=== PATIENT | male | born 1945 | race Caucasian/White ===

== ENCOUNTER 2018-11-09 16:28 | Outpatient (CLI) | payer BC ==
[2018-11-09] MEDS ORDERED: Sodium Chloride 0.9% 15 ML NEB ONE (18:00)
--- NOTE | 2018-11-09 21:04 | HP ---
HISTORY OF PRESENT ILLNESS: Mr. Arslan Schuster junior is a very pleasant 72-year-old gentleman last seen in the [facility] Center in 2016, who presents again for evaluation of an ulceration of the left medial lower leg. The patient states he has been performing dressing changes of a dressing containing silver for his ulceration. The patient has no other complaints today. He denies any fever or chills. PAST MEDICAL HISTORY: 1. Recurrent deep venous thrombosis and two episodes of pulmonary embolus. 2. Gout. 3. Atrial fibrillation. PAST SURGICAL HISTORY: Cataract surgery. MEDICATIONS: 1. Coreg. 2. Ramipril. 3. Coumadin. ALLERGIES: NO KNOWN DIAGNOSED ALLERGIES. SOCIAL HISTORY: Social history is negative for current tobacco or EtOH use. FAMILY HISTORY: Family history is negative for coronary artery disease or diabetes mellitus. REVIEW OF SYSTEMS: The patient states that the ulceration of his left medial lower leg has been present for approximately 2 months. He states that it "scabbed" and appeared to be healing. He states, however, that the scab came off again revealing the ulceration now present. PHYSICAL EXAMINATION: VITAL SIGNS: Temperature 97.7, pulse 66, and blood pressure 133/62. GENERAL: A 72-year-old gentleman, sitting on table in examination room, in no acute distress. HEENT: Normocephalic, atraumatic. NECK: No nuchal rigidity. CHEST: Clear to auscultation. CV: Irregular. ABDOMEN: Soft. EXTREMITIES: An ulceration of the left medial lower leg is present, which measures approximately 1.1 x 1.1 cm. Granulation tissue is visible within the wound margins. Nonviable tissue present within the wound margins was debrided with an excisional full-thickness debridement. No purulent drainage is associated with the wound. No erythema of the skin surrounding the wound is present. No maceration of the skin of the periwound is noted. A dorsalis pedis pulse is easily palpable on the left. No significant edema of the left foot or lower leg is appreciated on exam today. Hyperpigmentation of the skin of the left lower leg is present. Numerous varicosities are also noted over the left foot and lower leg. ASSESSMENT AND PLAN: 1. 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 I will see Mr. Schuster again in 1 week. No antibiotics will be prescribed today based upon the appearance of the wound. The patient will also be referred for evaluation for venous ablation. 2. Recurrent deep venous thrombosis and 2 episodes of pulmonary embolus. 3. Gout. 4. Atrial fibrillation. Job ID: [id number]
== END 2018-11-09 16:29 | disposition home or self-care (01) ==
LOC: WCC 16:28
PROVIDERS: ATTEND Family Medicine
DX: I83.028 Varicose veins of left lower extremity with ulcer other part of lower leg (principal); L97.929 Non-pressure chronic ulcer of unspecified part of left lower leg with unspecified severity; M10.9 Gout, unspecified; I48.91 Unspecified atrial fibrillation; I82.402 Acute embolism and thrombosis of unspecified deep veins of left lower extremity; I26.99 Other pulmonary embolism without acute cor pulmonale
CPT/HCPCS: 11042; 99203; A4218; G0463

== ENCOUNTER 2018-11-16 14:14 | Outpatient (CLI) | payer BC ==
[2018-11-16] MEDS ORDERED: Sodium Chloride 0.9% 15 ML NEB ONE (15:00)
--- NOTE | 2018-11-16 15:19 | PRG ---
DATE OF SERVICE: 11/16/2018 HISTORY: Mr. Arslan Schuster Jr. is a very pleasant 73-year-old gentleman, who presents to the Wound Center for evaluation of an ulceration of the left medial lower leg. Prior to being seen in the Wound Center, the patient stated he had been performing dressing changes with the dressing containing silver for the ulceration. After being seen in the Wound Center, Medihoney Alginate followed by foam and the 3M Coban 2 Layer Compression System were applied to the ulceration. The patient has no complaints today. He denies any fever or chills. PHYSICAL EXAMINATION: VITAL SIGNS: Temperature 97.6, pulse 56, respirations 18, blood pressure 127/91. EXTREMITIES: An ulceration of the left medial lower leg is present, which measures approximately 1.3 x 1.4 cm. Granulation tissue is present within the wound margins. Nonviable tissue present within the wound margins was debrided with an excisional full-thickness debridement. No purulent drainage is associated with the wound. No erythema of the skin surrounding the wound is present. No maceration of the skin of the periwound is noted. No significant edema of the left foot or lower leg is appreciated on exam today. Hyperpigmentation of the skin of the left lower leg is present. Numerous varicosities are also again noted over the left foot and lower leg. ASSESSMENT AND PLAN: 1. 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 Medihoney, foam, and the 3M Coban 2 Layer Compression System will be applied to the ulceration today. I will see Mr. Schuster again in 1 week. The patient will be referred for evaluation for venous ablation. 2. Recurrent deep venous thrombosis and two episodes of pulmonary embolus. 3. Gout. 4. Atrial fibrillation. Job ID: [id number]
== END 2018-11-16 14:15 | disposition home or self-care (01) ==
LOC: WCC 14:14
PROVIDERS: ATTEND Family Medicine
DX: I83.028 Varicose veins of left lower extremity with ulcer other part of lower leg (principal); L97.829 Non-pressure chronic ulcer of other part of left lower leg with unspecified severity; I82.409 Acute embolism and thrombosis of unspecified deep veins of unspecified lower extremity; I26.99 Other pulmonary embolism without acute cor pulmonale; M10.9 Gout, unspecified; I48.91 Unspecified atrial fibrillation
CPT/HCPCS: A4218

== ENCOUNTER 2018-11-23 13:41 | Outpatient (CLI) | payer BC ==
[~2018-11-23 13:41] MED LIST: Sodium Chloride 0.9% 15 ML NEB ONE
--- NOTE | 2018-11-23 15:26 | PRG ---
DATE OF SERVICE: 11/23/2018 HISTORY: Mr. Arslan Schuster Jr is a very pleasant 73-year-old gentleman, who presents to the wound center for evaluation of an ulceration of the left medial lower leg. Prior to being seen in the wound center, the patient stated, he had been performing dressing changes with dressings containing silver for his ulceration. After being seen in the wound center; Medihoney alginate, followed by foam, and the 3M Coban 2 Layer Compression System were applied to the ulceration. The patient has been receiving these dressing changes on a weekly basis. Mr. Schuster has no complaints today. He denies any fever or chills. PHYSICAL EXAMINATION: VITAL SIGNS: Temperature 98.1, pulse 79, respirations 18, and blood pressure 114/79. EXTREMITIES: An ulceration of the left medial lower leg is present, which measures approximately 1.3 x 1.3 cm. The dimensions of the wound at the time of the patient's last visit were approximately 1.3 x 1.4 cm. Granulation tissue is present within the wound margins. Nonviable tissue present within the wound margins was debrided with an excisional full-thickness debridement. No purulent drainage is associated with the wound. No erythema of the skin surrounding the wound is present. No maceration of the skin of the periwound is noted. No significant edema of the left foot or lower leg is present on exam today. Hyperpigmentation of the skin of the left lower leg is present. Numerous varicosities are also present over the left foot and lower leg. ASSESSMENT AND PLAN: 1. 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 Hydrofera Blue, an ABD, Webril, and the 3M Coban 2 Layer Compression System will be applied to the ulceration today. I will see Mr. Schuster again in 1 week. The patient will be referred again for evaluation for venous ablation. 2. Recurrent deep venous thrombosis and 2 episodes of pulmonary embolus. 3. Gout. 4. Atrial fibrillation. Job ID: [id number]
== END 2018-11-23 13:42 | disposition home or self-care (01) ==
LOC: WCC 13:41
PROVIDERS: ATTEND Family Medicine
DX: I83.029 Varicose veins of left lower extremity with ulcer of unspecified site (principal); I82.409 Acute embolism and thrombosis of unspecified deep veins of unspecified lower extremity; I26.99 Other pulmonary embolism without acute cor pulmonale; M10.9 Gout, unspecified; I48.91 Unspecified atrial fibrillation
CPT/HCPCS: 11042; A4218

== ENCOUNTER 2018-11-30 13:59 | Outpatient (CLI) | payer BC ==
--- NOTE | 2018-11-30 14:43 | PRG ---
DATE OF SERVICE: 11/30/2018 HISTORY: Mr. Arslan Schuster Jr is a very pleasant 73-year-old gentleman, who presents to the Wound Center for evaluation of an ulceration of the left medial lower leg. Prior to being seen in the Wound Center, the patient stated he had been performing dressing changes with dressings containing silver for his ulceration. After being seen in the Wound Center, Medihoney alginate, followed by foam, and the 3M Coban 2 Layer Compression System were applied to the ulceration. The patient received these dressing changes on a weekly basis. At the time of the patient's last visit, Hydrofera Blue, an ABD, Webril, and the 3M Coban 2 Layer Compression System were applied to the ulceration. The patient has no complaints today. He denies any fever or chills. PHYSICAL EXAMINATION: VITAL SIGNS: Temperature 97.5, pulse 86, respirations 18, blood pressure 126/71. EXTREMITIES: An ulceration of the left medial lower leg is present, which measures approximately 1.0 x 1.3 cm. The dimensions of the wound at the time of the patient's last visit were approximately 1.3 x 1.3 cm. Granulation tissue is present within the wound margins. Nonviable tissue present within the wound margins was debrided with an excisional full-thickness debridement. No purulent drainage is associated with the wound. No erythema of the skin surrounding the wound is present. No maceration of the skin of the periwound is noted. No significant edema of the left foot or lower leg is present on exam today. Hyperpigmentation of the skin of the left lower leg is present. Numerous varicosities are also present over the left foot and lower leg. ASSESSMENT AND PLAN: 1. 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 Hydrofera Blue, an ABD, Webril, and the 3M Coban 2 Layer Compression System will be applied to the ulceration today. The patient is being seen by Dr. Randell Lees for evaluation for venous ablation. I will see Mr. Schuster again in 1 week. 2. Recurrent deep venous thrombosis and 2 episodes of pulmonary embolus. 3. Gout. 4. Atrial fibrillation. Job ID: [id number]
[2018-11-30] MEDS ORDERED: Sodium Chloride 0.9% 15 ML NEB ONE (15:00)
== END 2018-11-30 14:00 | disposition home or self-care (01) ==
LOC: WCC 13:59
PROVIDERS: ATTEND Family Medicine
DX: I83.028 Varicose veins of left lower extremity with ulcer other part of lower leg (principal); L97.829 Non-pressure chronic ulcer of other part of left lower leg with unspecified severity; I26.99 Other pulmonary embolism without acute cor pulmonale; I82.409 Acute embolism and thrombosis of unspecified deep veins of unspecified lower extremity; M10.9 Gout, unspecified; I48.91 Unspecified atrial fibrillation
CPT/HCPCS: 11042; A4218

== ENCOUNTER 2018-12-07 10:45 | Outpatient (CLI) | payer BC ==
--- NOTE | 2018-12-07 17:10 | PRG ---
DATE OF SERVICE: 12/07/2018 HISTORY: Mr. Arslan Schuster junior is a very pleasant 73-year-old gentleman, who presents to the Wound Center for evaluation of an ulceration of the left medial lower leg. Prior to being seen in the Wound Center, the patient stated he had been performing dressing changes with dressings containing silver for his ulceration. After being seen in the Wound Center, Medihoney alginate followed by foam and the 3M Coban 2 Layer Compression System were applied to the ulceration. The patient received these dressing changes on a weekly basis. More recently, the patient has had Hydrofera Blue, an ABD, Webril, and the 3M Coban 2 Layer Compression System applied to the ulceration. Mr. Schuster has no complaints today. He denies any fever or chills. PHYSICAL EXAMINATION: VITAL SIGNS: Temperature 97.6, pulse 55, respirations 16, blood pressure 125/72. EXTREMITIES: An ulceration of the left medial lower leg is present, which measures approximately 1.1 x 1.0 cm. The dimensions of the wound at the time of the patient's last visit were approximately 1.0 x 1.3 cm. Granulation tissue was present within the wound margins. Nonviable tissue present within the wound margins was debrided with an excisional full-thickness debridement. No purulent drainage was associated with the wound. No erythema of the skin surrounding the wound was present. No maceration of the skin of the periwound was noted. No significant edema of the left foot or lower leg was present on exam today. Hyperpigmentation of the skin of the left lower leg was present. Numerous varicosities were also present over the left foot and lower leg. ASSESSMENT AND PLAN: 1. 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 Hydrofera Blue followed by Webril and the 3M Coban 2 Layer Compression System will be applied to the ulceration today. The patient is being evaluated for venous ablation by Dr. Randell Lees. The patient will return to the Wound Center in 1 week for dressing change. I will see Mr. Schuster again in 2 weeks. 2. Recurrent deep venous thrombosis and 2 episodes of pulmonary embolus. 3. Gout. 4. Atrial fibrillation. Job ID: [id number]
== END 2018-12-07 10:46 | disposition home or self-care (01) ==
LOC: WCC 10:45
PROVIDERS: ATTEND Family Medicine
DX: I83.028 Varicose veins of left lower extremity with ulcer other part of lower leg (principal); L97.829 Non-pressure chronic ulcer of other part of left lower leg with unspecified severity; I82.402 Acute embolism and thrombosis of unspecified deep veins of left lower extremity; M10.9 Gout, unspecified
CPT/HCPCS: 11042; A4218

== ENCOUNTER 2018-12-14 11:32 | Outpatient (CLI) | payer BC | END 2018-12-14 11:33 | disposition home or self-care (01) | LOC: WCC 11:32 | PROVIDERS: ATTEND Family Medicine | DX: L97.919 Non-pressure chronic ulcer of unspecified part of right lower leg with unspecified severity (principal) | CPT/HCPCS: A4218 ==

== ENCOUNTER 2018-12-21 13:35 | Outpatient (CLI) | payer BC ==
--- NOTE | 2018-12-21 10:22 | PRG ---
DATE OF SERVICE: 12/21/2018 SUBJECTIVE: Mr. Arslan Schuster Jr is a very pleasant 73-year-old gentleman, who presents to the Wound Center for evaluation of an ulceration of the left medial lower leg. Prior to being seen in the Wound Center, the patient stated he had been performing dressing changes with dressings containing silver for his ulceration. After being seen in the Wound Center, Medihoney alginate, followed by foam, and the 3M Coban 2 Layer Compression System were applied to the ulceration. The patient received these dressing changes on a weekly basis. More recently, the patient has had dressing changes of Hydrofera Blue in conjunction with the 3M Coban 2 Layer Compression System for the ulceration. The patient has no complaints today. He denies any fever or chills. The patient states he has been seen at [facility] for evaluation for venous ablation. PHYSICAL EXAMINATION: VITAL SIGNS: Temperature 97.9, pulse 63, respirations 17, blood pressure 161/74. EXTREMITIES: An ulceration of the left medial lower leg is present, which measures approximately 0.7 x 0.7 cm. The dimensions of the wound at the time of the patient's last visit were approximately 1.1 x 1.0 cm. Granulation tissue is present within the wound margins. Nonviable tissue present within the wound margins was debrided with an excisional full-thickness debridement with the use of a curette. No purulent drainage is associated with the wound. No erythema of the skin surrounding the wound is present. No maceration of the skin of the periwound is noted. No significant edema of the left foot or lower leg is present on exam today. Hyperpigmentation of the skin of the left lower leg is present. Numerous varicosities are also present over the left foot and lower leg. ASSESSMENT AND PLAN: 1. 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 Hydrofera Blue, followed by Webril and the 3M Coban 2 Layer Compression System will be applied to the ulceration today. I will see Mr. Schuster again in 1 week. The records of the patient's visit at [facility] will be obtained. 2. Recurrent deep venous thrombosis and 2 episodes of pulmonary embolus. 3. Gout. 4. Atrial fibrillation. Job ID: [id number]
[~2018-12-21 13:35] MED LIST changes: +Lidocaine 2% PF 100 mg/5 ml Syringe ONE
== END 2018-12-21 13:36 | disposition home or self-care (01) ==
LOC: WCC 13:35
PROVIDERS: ATTEND Family Medicine
DX: I83.029 Varicose veins of left lower extremity with ulcer of unspecified site (principal); I82.402 Acute embolism and thrombosis of unspecified deep veins of left lower extremity; M10.9 Gout, unspecified; I48.91 Unspecified atrial fibrillation
CPT/HCPCS: 11042; A4218; J2001

== ENCOUNTER 2018-12-28 09:48 | Outpatient (CLI) | payer BC ==
--- NOTE | 2018-12-28 09:51 | PRG ---
DATE OF SERVICE: 12/28/2018 HISTORY: Mr. Arslan Schuster Junior is a very pleasant 73-year-old gentleman, who presents to the Wound Center for evaluation of an ulceration of the left medial lower leg. Prior to being seen in the Wound Center, the patient stated he had been performing dressing changes with dressings containing silver for his ulceration. After being seen in the Wound Center, Medihoney alginate followed by foam and the 3M Coban 2 Layer Compression System were applied to the ulceration. The patient received these dressing changes on a weekly basis. More recently, the patient has had dressing changes of Hydrofera Blue in conjunction with the 3M Coban 2 Layer Compression System for the ulceration. The patient has no complaints today. He denies any fever or chills. The patient has been seen at [facility] for evaluation for venous ablation. The patient states he has a followup appointment with Dr. Randell Lees on 02/21/2019, at 9 a.m. PHYSICAL EXAMINATION: VITAL SIGNS: Temperature 97.7, pulse 54, respirations 17, blood pressure 100/64. EXTREMITIES: An ulceration of the left medial lower leg is present, which measures approximately 0.5 x 0.7 cm. The dimensions of the wound at the time of the patient's last visit were approximately 0.7 x 0.7 cm. Granulation tissue is present within the wound margins. Nonviable tissue present within the wound margins was debrided with an excisional full-thickness debridement with the use of a curette. No purulent drainage is associated with the wound. No erythema of the skin surrounding the wound is present. No maceration of the skin of the periwound is noted. No significant edema of the left foot or lower leg is present on exam today. Hyperpigmentation of the skin of the left lower leg is present. Numerous varicosities are also present over the left foot and lower leg. ASSESSMENT AND PLAN: 1. 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 Hydrofera Blue followed by Webril and the 3M Coban 2 Layer Compression System will be applied to the ulceration today. I will see Mr. Schuster again in 1 week. As stated above, the patient has a followup appointment with Dr. Randell Lees on 02/21/2019, at 9 a.m. 2. Recurrent deep venous thrombosis and 2 episodes of pulmonary embolus. 3. Gout. 4. Atrial fibrillation. Job ID: [id number]
== END 2018-12-28 09:49 | disposition home or self-care (01) ==
LOC: WCC 09:48
PROVIDERS: ATTEND Family Medicine
DX: I83.028 Varicose veins of left lower extremity with ulcer other part of lower leg (principal); L97.929 Non-pressure chronic ulcer of unspecified part of left lower leg with unspecified severity; I48.91 Unspecified atrial fibrillation; M10.9 Gout, unspecified; I82.409 Acute embolism and thrombosis of unspecified deep veins of unspecified lower extremity; I26.99 Other pulmonary embolism without acute cor pulmonale

== ENCOUNTER 2019-01-04 09:35 | Outpatient (CLI) | payer BC ==
[~2019-01-04 09:35] MED LIST changes: -Lidocaine 2% PF 100 mg/5 ml Syringe ONE
--- NOTE | 2019-01-04 15:32 | PRG ---
DATE OF SERVICE: 01/04/2019 HISTORY: Mr. Arslan Schuster Jr is a very pleasant 73-year-old gentleman, who presents to the Wound Center for evaluation of an ulceration of the left medial lower leg. Prior to being seen in the Wound Center, the patient stated he had been performing dressing changes with dressings containing silver for his ulceration. After being seen in the Wound Center, Medihoney alginate, followed by foam, and the 3M Coban 2 Layer Compression System were applied to the ulceration. The patient received these dressing changes on a weekly basis. More recently, the patient has been receiving dressing changes of Hydrofera Blue in conjunction with the 3M Coban 2 Layer Compression System for the ulceration. Mr. Schuster has no complaints today. He denies any fever or chills. The patient has been seen at [facility] for evaluation for venous ablation. The patient has a followup appointment with Dr. Randell Lees on 02/21/2019 at 9 a.m. PHYSICAL EXAMINATION: VITAL SIGNS: Temperature 97.6, pulse 62, respirations 18, blood pressure 103/69. EXTREMITIES: An ulceration of the left medial lower leg is present, which measures approximately 0.6 x 0.4 cm. The dimensions of the wound at the time of the patient's last visit were approximately 0.5 x 0.7 cm. Granulation tissue is present within the wound margins. Nonviable tissue present within the wound margins was debrided with an excisional full-thickness debridement. No purulent drainage is associated with the wound. No erythema of the skin surrounding the wound is present. No maceration of the skin of the periwound is noted. No significant edema of the left foot or lower leg is present on exam today. Hyperpigmentation of the skin of the left lower leg is present. Numerous varicosities are also present over the left foot and lower leg. ASSESSMENT AND PLAN: 1. 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 Hydrofera Blue, followed by Webril and the 3M Coban 2 Layer Compression System will be applied to the ulceration today. I will see Mr. Schuster again in 1 week. 2. Recurrent deep venous thrombosis and two episodes of pulmonary embolism. 3. Gout. 4. Atrial fibrillation. Job ID: [id number]
== END 2019-01-04 09:36 | disposition home or self-care (01) ==
LOC: WCC 09:35
PROVIDERS: ATTEND Family Medicine
DX: I83.028 Varicose veins of left lower extremity with ulcer other part of lower leg (principal); L97.929 Non-pressure chronic ulcer of unspecified part of left lower leg with unspecified severity; I48.91 Unspecified atrial fibrillation; I82.402 Acute embolism and thrombosis of unspecified deep veins of left lower extremity; I26.99 Other pulmonary embolism without acute cor pulmonale; M10.9 Gout, unspecified
CPT/HCPCS: 11042; A4218

== ENCOUNTER 2019-01-11 10:07 | Outpatient (CLI) | payer BC ==
--- NOTE | 2019-01-11 11:02 | PRG ---
DATE OF SERVICE: 01/11/2019 SUBJECTIVE: Arslan Schuster Junior is a very pleasant 73-year-old gentleman, who presents to the Wound Center for evaluation of an ulceration of the left medial lower leg. Prior to being seen in the Wound Center, the patient stated he had been performing dressing changes with dressings containing silver for his ulceration. After being seen in the Wound Center, Medihoney alginate, followed by foam, and the 3M Coban 2 Layer Compression System were applied to the ulceration. The patient received these dressing changes on a weekly basis. More recently, the patient has been receiving dressing changes of Hydrofera BLUE in conjunction with the 3M Coban 2 Layer Compression System for the ulceration. The patient has no complaints today. He denies any fever or chills. The patient has been seen at [facility] for evaluation for venous ablation. The patient has a followup appointment with Dr. Randell Lees at 9:00 a.m. on 02/21/2019. OBJECTIVE: VITAL SIGNS: Temperature 97.7, pulse 67, respirations 18, and blood pressure 110/69. EXTREMITIES: An ulceration of the left medial lower leg is present which measures approximately 0.4 x 0.5 cm. The dimensions of the wound at the time of the patient's last visit were approximately 0.6 x 0.4 cm. Granulation tissue is present within the wound margins. Nonviable tissue present within the wound margins was debrided with an excisional full-thickness debridement. No purulent drainage is associated with the wound. No erythema of the skin surrounding the wound is present. No maceration of the skin of the periwound is noted. No significant edema of the left foot or lower leg is present on exam today. Hyperpigmentation of the skin of the left lower leg is present. Numerous varicosities are also present over the left foot and lower leg. ASSESSMENT AND PLAN: 1. 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 Hydrofera BLUE, followed by Webril and the 3M Coban 2 Layer Compression System will be applied to the ulceration today. I will see Mr. Schuster again in 1 week. 2. Recurrent deep venous thrombosis and 2 episodes of pulmonary embolism. 3. Gout. 4. Atrial fibrillation. Job ID: [id number]
[2019-01-11] MEDS ORDERED: Sodium Chloride 0.9% 15 ML NEB ONE (18:00)
== END 2019-01-11 10:08 | disposition home or self-care (01) ==
LOC: WCC 10:07
PROVIDERS: ATTEND Family Medicine
DX: I83.028 Varicose veins of left lower extremity with ulcer other part of lower leg (principal); L97.929 Non-pressure chronic ulcer of unspecified part of left lower leg with unspecified severity; I82.409 Acute embolism and thrombosis of unspecified deep veins of unspecified lower extremity; M10.9 Gout, unspecified; I48.91 Unspecified atrial fibrillation
CPT/HCPCS: 11042; A4218

== ENCOUNTER 2019-01-25 15:57 | Outpatient (CLI) | payer BC ==
--- NOTE | 2019-01-25 11:01 | PRG ---
DATE OF SERVICE: 01/25/2019 HISTORY: Mr. Arslan Schuster Junior is a very pleasant 73-year-old gentleman who presents to the Wound Center for evaluation of an ulceration of the left medial lower leg. Prior to being seen in the Wound Center, the patient stated he had been performing dressing changes with dressings containing silver for his ulceration. After being seen in the Wound Center, Medihoney alginate followed by foam and 3M Coban 2 Layer Compression System were applied to the ulceration. The patient received these dressing changes on a weekly basis. More recently, the patient has been receiving dressing changes of Hydrofera Blue in conjunction with the 3M Coban 2 Layer Compression System. The patient has no complaints today. He denies any fever or chills. The patient has been seen in [facility] for evaluation for venous ablation. Today, the patient states that his followup appointment is with Dr. Randell Lees at 11:30 a.m. on 03/08/2019. PHYSICAL EXAMINATION: VITAL SIGNS: Temperature 98.0, pulse 42, respirations 18, and blood pressure 99/68. EXTREMITIES: An ulceration of the left medial lower leg is present, which measures approximately 0.3 x 0.3 cm. The dimensions of the wound at the time of the patient's last visit were approximately 0.4 x 0.3 cm. Granulation tissue is present within the wound margins. Nonviable tissue present within the wound margins was debrided with an excisional full-thickness debridement. No purulent drainage is associated with the wound. No erythema of the skin surrounding the wound is present. No maceration of the skin of the periwound is noted. No significant edema of the left foot or lower leg is present on exam today. Hyperpigmentation of the skin of the left lower leg is present. Numerous varicosities are also present over the left foot and lower leg. ASSESSMENT AND PLAN: 1. 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 Promogran followed by Hydrofera Blue, Webril, and the 3M Coban 2 Layer Compression System will be applied to the ulceration today. The patient is to return to the Wound Center for a dressing change of Promogran, Hydrofera Blue, Webril, and the 3M Coban 2 Layer Compression System in 1 week. I will see Mr. Schuster again in 2 weeks. 2. Recurrent deep venous thrombosis and 2 episodes of pulmonary embolism. 3. Gout. 4. Atrial fibrillation. Job ID: [id number]
== END 2019-01-25 15:58 | disposition home or self-care (01) ==
LOC: WCC 15:57
PROVIDERS: ATTEND Family Medicine
DX: I83.028 Varicose veins of left lower extremity with ulcer other part of lower leg (principal); L97.829 Non-pressure chronic ulcer of other part of left lower leg with unspecified severity; M10.9 Gout, unspecified; I48.91 Unspecified atrial fibrillation; I82.409 Acute embolism and thrombosis of unspecified deep veins of unspecified lower extremity; I26.99 Other pulmonary embolism without acute cor pulmonale
CPT/HCPCS: A4218

== ENCOUNTER 2019-02-01 08:37 | Outpatient (CLI) | payer BC | END 2019-02-01 08:38 | disposition home or self-care (01) | LOC: WCC 08:37 | PROVIDERS: ATTEND Family Medicine | DX: T81.89XD Other complications of procedures, not elsewhere classified, subsequent encounter (principal); I48.91 Unspecified atrial fibrillation; M10.9 Gout, unspecified; D69.6 Thrombocytopenia, unspecified; Z86.718 Personal history of other venous thrombosis and embolism; Z86.711 Personal history of pulmonary embolism | CPT/HCPCS: 29581; A4218 ==

== ENCOUNTER 2019-02-08 09:37 | Outpatient (CLI) | payer BC ==
--- NOTE | 2019-02-08 11:03 | PRG ---
DATE OF SERVICE: 02/08/2019 HISTORY: Mr. Arslan Schuster Junior is a very pleasant 73-year-old gentleman, who [facility] for evaluation of an ulceration of the left medial lower leg. Prior to being seen in the [facility], the patient stated he had been performing dressing changes with silver containing dressings for his ulceration. After being seen in the [facility], Medihoney alginate, followed by foam and the 3M Coban 2 Layer Compression System were applied to the ulceration. The patient received these dressing changes on a weekly basis. More recently, the patient has been receiving dressing changes of Hydrofera Blue in conjunction with the 3M Coban 2 Layer Compression System. At the time of the patient's visit on 01/25/2019, Promogran was added to the patient's regimen. The patient has no complaints today. He denies any fever or chills. The patient has been seen in [facility] for evaluation for venous ablation. The patient's followup appointment with Dr. Randell Lees is on 03/08/2019 at 11:30 a.m. PHYSICAL EXAMINATION: VITAL SIGNS: Temperature 97.8, pulse 73, respirations 18, and blood pressure 120/64. EXTREMITIES: The ulceration of the left medial lower leg has healed completely. ASSESSMENT AND PLAN: 1. 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 Webril followed by the 3M Coban 2 Layer Compression System will be applied to the newly healed ulceration today. The patient is to remove the compression wrap in 1 week and begin utilizing his compression garments. The patient has been reminded to keep his followup appointment with Dr. Randell Lees. Mr. Schuster will be discharged from clinic today with followup on a p.r.n. basis. 2. Recurrent deep venous thrombosis and 2 episodes of pulmonary embolism. 3. Gout. 4. Atrial fibrillation. Job ID: [id number]
== END 2019-02-08 09:38 | disposition home or self-care (01) ==
LOC: WCC 09:37
PROVIDERS: ATTEND Family Medicine
DX: I82.409 Acute embolism and thrombosis of unspecified deep veins of unspecified lower extremity (principal); M10.9 Gout, unspecified; I48.91 Unspecified atrial fibrillation
CPT/HCPCS: 29581; A4218